=== PATIENT | female | born 1990 | race Asian ===

== ENCOUNTER 2017-12-23 12:58 | Emergency (ER) | payer OTHER ==
[2017-12-23] MEDS ORDERED: TETRACAINE HCL 0.5% 4 ML OPHTH SOLN ONE (15:23)
== END 2017-12-23 15:45 | disposition home or self-care (01) ==
LOC: EDH 12:58
DX: S05.02XA Injury of conjunctiva and corneal abrasion without foreign body, left eye, initial encounter (principal); X58.XXXA Exposure to other specified factors, initial encounter; Y93.89 Activity, other specified; Y92.89 Other specified places as the place of occurrence of the external cause; Y99.8 Other external cause status